=== PATIENT | male | born 1955 | race Caucasian/White ===

== ENCOUNTER → 2017-04-06 | Outpatient (CLI) | payer BC ==
[~2017-04-06] MED LIST: NITROGLYCERIN 5 MG/ML IV; NITROGLYCERIN 5 MG/ML SL; PERCOCET 325 MG1 TA3 PO
--- NOTE | 2017-04-06 10:31 | CARDIOVASCULAR REPORT ---
"Cerebrovascular Exam Indications: 782.0 Disturbance of skin sensation. IMPRESSIONS 1. The bilateral internal carotid arteries reveal no evidence of plaque or stenosis. 2. The bilateral common and external carotid arteries reveal no significant stenosis. 3. The bilateral vertebral arteries are patent with normal antegrade flow. History: Transient ischemic attack. Risk factors: Hypertension. Carotid duplex study. Complete study and Doppler flow study including spectral analysis, color and forbes scale imaging. Height: Height: 180.3cm. Height: 71in. Weight: Weight: 108.9kg. Weight: 239.5lb. Body mass index: BMI: 33.5kg/m^2. Body surface area: BSA: 2.37m^2. Location: Vascular laboratory. Patient status: Outpatient. Tables: Arterial flow: + +--------+--------+ |Location |V sys |V ed | + +--------+--------+ |Right CCA - proximal|113cm/s |35.4cm/s| + +--------+--------+ |Right CCA - distal |84.1cm/s|28.3cm/s| + +--------+--------+ |Right ECA |130cm/s |--------| + +--------+--------+ |Right ICA - proximal|80.1cm/s|28.3cm/s| + +--------+--------+ |Right ICA - mid |62.1cm/s|29.9cm/s| + +--------+--------+ |Right ICA - distal |90.4cm/s|45.6cm/s| + +--------+--------+ |Right vertebral |36.9cm/s|--------| + +--------+--------+ |Left CCA - proximal |97.4cm/s|27.5cm/s| + +--------+--------+ |Left CCA - distal |92.7cm/s|28.3cm/s| + +--------+--------+ |Left ECA |118cm/s |--------| + +--------+--------+ |Left ICA - proximal |59.7cm/s|24.4cm/s| + +--------+--------+ |Left ICA - mid |83.3cm/s|35.4cm/s| + +--------+--------+ |Left ICA - distal |90.4cm/s|40.9cm/s| + +--------+--------+ |Left vertebral |29.5cm/s|--------| + +--------+--------+ Velocity ratios: + + + + + + | |Right, V sys|Right, V ed|Left, V sys|Left, V ed| + + + + + + |Max ICA/dist CCA|1.07 |1.61 |0.98 |1.45 | + + + + + + (Report amended ) Electronically signed by: Tony De Leon [id number]"
== END ==
LOC: RT 04-05 10:15
DX: R20.0 Anesthesia of skin (principal)